=== PATIENT | male | born 1990 | race Hispanic/Latino ===

== ENCOUNTER 2020-07-02 17:27 | Emergency (ER) | payer SELFPAY ==
--- NOTE | 2020-07-02 18:01 | ER ---
Nurse's Notes [facility] Name: Owen Osei Jr Age: 29 yrs Sex: Male : 1990 Arrival Date: 07/02/2020 Time: 17:28 Bed Waiting Private MD: Diagnosis: ED Course: 07/02 17:28 Patient arrived in ED. as 17:45 Patient's name was called from ER lobby. Unable to locate patient. Will disposition as aa5 left without being seen by a provider. 17:50 Patient's name was called from ER lobby. Unable to locate patient. Will disposition as aa5 left without being seen by a provider. 18:00 Patient's name was called from ER lobby. Unable to locate patient. Will disposition as aa5 left without being seen by a provider. 18:01 Jono Bill MD is Attending Physician. aa5 Administered Medications: No medications were administered Outcome: 18:01 Patient left the ED. aa5 Signatures: Vijaya Rowley Audri, RN RN aa5
== END 2020-07-02 18:01 | disposition left against medical advice (07) ==
LOC: ER 17:27
DX: Z02.9 Encounter for administrative examinations, unspecified (principal)